=== PATIENT | female | born 1960 | race Caucasian/White ===

== ENCOUNTER 2025-01-13 04:13 | Emergency (ER) | payer OTHER, SELFPAY ==
[2025-01-13] VITALS (14 sets, daily range): BP systolic 146–182; BP diastolic 80–107; PULSE 91–108; RESP 14–19; TEMP 36.9; O2SAT 95–100; BMI 26.5
--- NOTE | 2025-01-13 04:37 | ED_ITS ---
HPI - Abdominal Pain <Uriah Mcclure, DO - Last Filed: 01/13/25 19:39> General Chief Complaint: Abdominal Pain Stated Complaint: Abdominal Pain, Back Pain Time Seen by Provider: 01/13/25 04:27 Source: patient Mode of arrival: Ambulatory History of Present Illness HPI narrative: 64-year-old female history of cholecystectomy presents with abdominal pain radiating to right back neck and shoulder region after eating dinner tonight took Pepcid and Advil with no significant relief of her symptoms. She denies nausea, vomiting, diarrhea, constipation, blood in the urine, or stool, fever or chills or urinary complaints. She did have a bowel movement earlier today that was normal. Other than what is stated 14 point review of system is negative. Related Data Previous Rx's Medication Instructions Recorded meloxicam 7.5 mg tablet 7.5 mg PO BID PRN pain #20 tabs 01/13/25 oxycodone 5 mg tablet 5 mg PO QID PRN pain #10 tabs 01/13/25 Review of Systems <Uriah Mcclure, DO - Last Filed: 01/13/25 19:39> Review of Systems ROS Unobtainable: All systems reviewed & are unremarkable except as noted in HPI and below Patient History <Uriah Mcclure, DO - Last Filed: 01/13/25 19:39> Social History Smoking Status: Never smoker Smoking Status: Never smoker Exam <Uriah Mcclure DO - Last Filed: 01/13/25 19:39> Narrative Exam Narrative: GENERAL: [64] year old patient appears stated age. Well-developed patient, in mild distress. HEAD: Atraumatic. Normocephalic. EYES: Pupils equal round and reactive. Extraocular motions intact. No scleral icterus. No injection or drainage. ENT: Nose without bleeding, purulent drainage. Throat without erythema, tonsillar hypertrophy or exudate. Airway patent. NECK: Trachea midline. Non tender CARDIOVASCULAR: Regular rate and rhythm without murmurs, gallops, or rubs. RESPIRATORY: Clear to auscultation. Breath sounds equal bilaterally. No wheezes, rales, or rhonchi. GASTROINTESTINAL: Abdomen soft, RUQ/Epigastric TTP but no r/r/g/ nondistended. EXTREMITIES: No edema or joint tenderness. BACK: Nontender without deformity or crepitance. No flank tenderness. NEURO: AOx3. SKIN: No rash or erythema of visible areas Initial Vital Signs Initial Vital Signs: Vital Signs Pulse Rate 108 H 01/13/25 04:23 Respiratory Rate 18 01/13/25 04:23 Blood Pressure 176/102 H 01/13/25 04:23 Pulse Oximetry 97 01/13/25 04:23 Oxygen Delivery Method Room Air 01/13/25 04:23 <Freida Balbuena, DO - Last Filed: 01/13/25 17:20> Initial Vital Signs Initial Vital Signs: Vital Signs Pulse Rate 108 H 01/13/25 04:23 Respiratory Rate 18 01/13/25 04:23 Blood Pressure 176/102 H 01/13/25 04:23 Pulse Oximetry 97 01/13/25 04:23 Oxygen Delivery Method Room Air 01/13/25 04:23 Course <Uriah Mcclure, DO - Last Filed: 01/13/25 19:39> Orders Ordered: Discontinued Medications Lactated Ringer's (Lactated Ringers) 500 mls @ 1,000 mls/hr IV BOLUS ONE Stop: 01/13/25 05:53 Last Infusion: 01/13/25 06:19 Dose: Infused Documented By: Admin: 01/13/25 05:35 Dose: 1,000 mls/hr Documented By: AMADOR Ketorolac Tromethamine (Ketorolac 30 Mg/Ml Vial) 30 mg IV NOW ONE Stop: 01/13/25 05:25 Last Admin: 01/13/25 05:35 Dose: 30 mg Documented By: AMADOR Oxycodone/Acetaminophen (Oxycodone/Acetaminophen 5/325 Tablet) 2 tab PO NOW ONE Stop: 01/13/25 09:24 Last Admin: 01/13/25 09:33 Dose: 2 tab Documented By: JACQUELINE Vital Signs Vital signs: Vital Signs - 8 hr 01/13/25 10:02 Temperature 98.4 F Pulse Rate 91 H Respiratory Rate 18 Blood Pressure 148/89 H Pulse Oximetry 97 Oxygen Delivery Method Room Air <Freida Balbuena DO - Last Filed: 01/13/25 17:20> Orders Ordered: Discontinued Medications Lactated Ringer's (Lactated Ringers) 500 mls @ 1,000 mls/hr IV BOLUS ONE Stop: 01/13/25 05:53 Last Infusion: 01/13/25 06:19 Dose: Infused Documented By: Admin: 01/13/25 05:35 Dose: 1,000 mls/hr Documented By: AMADOR Ketorolac Tromethamine (Ketorolac 30 Mg/Ml Vial) 30 mg IV NOW ONE Stop: 01/13/25 05:25 Last Admin: 01/13/25 05:35 Dose: 30 mg Documented By: AMADOR Oxycodone/Acetaminophen (Oxycodone/Acetaminophen 5/325 Tablet) 2 tab PO NOW ONE Stop: 01/13/25 09:24 Last Admin: 01/13/25 09:33 Dose: 2 tab Documented By: JACQUELINE Vital Signs Vital signs: Vital Signs - 8 hr 01/13/25 10:02 Temperature 98.4 F Pulse Rate 91 H Respiratory Rate 18 Blood Pressure 148/89 H Pulse Oximetry 97 Oxygen Delivery Method Room Air MDM - Abdominal Pain <Uriah Mcclure, - Last Filed: 01/13/25 19:39> Lab Data 01/13/25 04:30 01/13/25 04:30 Labs: Lab Results 01/13/25 01/13/25 Range/Units 04:30 04:32 WBC 13.4 H (4.5-11.0) X10^3/uL RBC 4.85 (4.0-5.2) X10^6/uL Hgb 13.9 (12.0-16.0) g/dL Hct 40.9 (36-46) % MCV 84.2 (80-100) fL MCH 28.6 (26-34) PG MCHC 34.0 (30-36) % RDW 13.9 (11.6-14.8) % Plt Count 312 (150-400) X10^3/uL Neut % (Auto) 86.1 H (50-75) % Lymph % (Auto) 7.0 L (25-40) % [place] % (Auto) 5.8 (3-14) % Eos % (Auto) 0.7 L (2-4) % Baso % (Auto) 0.4 (0-2) % Neut # (Auto) 82540 H (2735-1714) /uL Lymph # (Auto) 900 L (2317-5658) /uL [place] # (Auto) 800 (0-900) /uL Eos # (Auto) 100 (0-450) /uL Baso # (Auto) 100 (0-100) /uL Sodium 135 L (137-145) mmol/L Potassium 4.1 (3.4-5.1) mmol/L Chloride 102 (98-107) mmol/L Carbon Dioxide 20 L (22-32) mmol/L BUN 19 H (7-17) mg/dL Creatinine 0.60 (0.52-1.04) mg/dL Estimated GFR > 60 (>60) mL/min BUN/Creatinine Ratio 31.7 H (6-22) Glucose 179 H (70-99) mg/dL Lactate 1.7 (0.7-2.1) mmol/L Calcium 9.4 (8.4-10.2) mg/dL Total Bilirubin 0.6 (0.2-1.3) mg/dL AST 39 H (14-36) IU/L ALT 31 (<35) IU/L Alkaline Phosphatase 125 (38-126) U/L Total Protein 7.8 (6.3-8.2) g/dL Albumin 4.7 (3.5-5.0) g/dL Globulin 3.1 (1.7-4.1) g/dL Albumin/Globulin Ratio 1.5 (1.0-2.8) Lipase 86 (23-300) U/L Urine RBC 1-5/hpf (0-5/HPF) Urine WBC 0-1/hpf (0-5/HPF) Ur Squamous Epith Cells 1-5 /hpf (0-5/HPF) Urine Bacteria None seen (None) Ur Culture Indicated? Cult not indicated Vol Urine Centrifuged 10ml (spun) Point of care testing: Urine Dip Bedside Urine Glucose 500 mg/dl Bedside Urine Bilirubin - Negative Bedside Urine Ketone - Negative Urine Specific [place] 1.015 Bedside Urine Occult Blood ++ Bedside Urine pH 6.5 Bedside Urine Protein +/- 15 Bedside Urine Urobilinogen - Negative Bedside Urine Nitrite - Negative Bedside Urine Leukocytes - Negative Esterase MDM Narrative Medical decision making narrative: All lab work vital signs nurse triage note medication list imaging studies and all previous visits reviewed. Patient given lactated ringer 1 L bolus and Toradol 30 mg IV x1 here. Case discussed with our surgeon on-call Dr. Amaya who recommended patient be transferred to a higher level of care with subspecialty available including interventional radiology to potentially put a drain in place given the size of liver cyst. Patient signed out to at shift change pending final disposition. 01/13/25 Dr. Balbuena 0736: Patient signed out to myself by Dr. Mcclure. Patient presents with right upper quadrant and epigastric pain after eating has a white count of 13, normal hemoglobin platelets, chemistry shows CO2 of 20 otherwise normal electrolytes and creatinine glucose of 179 AST is 39, bilirubin ALT and lipase are all normal as well as alk-phos. Point of care urine shows blood negative nitrates and leuks. 1-5 RBCs 1 WBCs 1-5 squamous no bacteria. Patient had CT imaging shows cholecystectomy, large simple right hepatic lobe cyst measuring up to 12.8 cm compressing neighboring structures tiny additional up to 18 mm scattered hepatic cysts. No evidence of intra cystic hemorrhage. Mild haziness of the central/left aspects of the small bowel mesenteric fat with the associated subcentimeter mesenteric nodes due to nonspecific age-indeterminate more likely chronic than acute has not otitis with a small hiatal hernia. Dr. Mcclure spoke with promotions director general surgery, Dr. Amaya, who recommends transfer for IR drain. Calls her optimal to facilities. Patient is seen and evaluated by myself on it. She states takes oral antihistamine no other daily medications. He was had prior cholecystectomy but no other surgeries. No known drug allergies. States pain is much improved after Toradol. On exam she was mildly tender right upper quadrant. Otherwise normal heart and lungs with normal bowel sounds. No rigidity, rebound or guarding. Patient is aware of current plan. Spoke with [facility] physician. They are agreeable for patient to be transferred to any facility as needed. Calls out to multiple facilities. [facility], Dr. Romero, IR reviewed patient's information and imaging and feels that is non emergent if they transferred which they can would probably not be treated about Wednesday at the earliest. They are willing to accept patient for transfer page out hospitalist but wanted to offer outpatient intervention as well. Spoke with coordinator who will look at the referral process as we are not set up for formal referral. Coordinator did call back, Dr. Romero he was placing in the formal order now. She can call the scheduling numbers below to be scheduled. Patient is to call Wednesday morning. Spoke with the patient she would much rather have this done on emergently as an outpatient rather than transfer. She notes her pain is starting to come back. We will give a dose of oral pain medication. Discussed risks/benefits with patient and family. She feels comfortable with this plan. She was tolerating orals here in the department. <Freida Balbuena, DO - Last Filed: 01/13/25 17:20> Lab Data Labs: Lab Results 01/13/25 01/13/25 Range/Units 04:30 04:32 WBC 13.4 H (4.5-11.0) X10^3/uL RBC 4.85 (4.0-5.2) X10^6/uL Hgb 13.9 (12.0-16.0) g/dL Hct 40.9 (36-46) % MCV 84.2 (80-100) fL MCH 28.6 (26-34) PG MCHC 34.0 (30-36) % RDW 13.9 (11.6-14.8) % Plt Count 312 (150-400) X10^3/uL Neut % (Auto) 86.1 H (50-75) % Lymph % (Auto) 7.0 L (25-40) % [place] % (Auto) 5.8 (3-14) % Eos % (Auto) 0.7 L (2-4) % Baso % (Auto) 0.4 (0-2) % Neut # (Auto) 23670 H (5459-2900) /uL Lymph # (Auto) 900 L (6611-2673) /uL [place] # (Auto) 800 (0-900) /uL Eos # (Auto) 100 (0-450) /uL Baso # (Auto) 100 (0-100) /uL Sodium 135 L (137-145) mmol/L Potassium 4.1 (3.4-5.1) mmol/L Chloride 102 (98-107) mmol/L Carbon Dioxide 20 L (22-32) mmol/L BUN 19 H (7-17) mg/dL Creatinine 0.60 (0.52-1.04) mg/dL Estimated GFR > 60 (>60) mL/min BUN/Creatinine Ratio 31.7 H (6-22) Glucose 179 H (70-99) mg/dL Lactate 1.7 (0.7-2.1) mmol/L Calcium 9.4 (8.4-10.2) mg/dL Total Bilirubin 0.6 (0.2-1.3) mg/dL AST 39 H (14-36) IU/L ALT 31 (<35) IU/L Alkaline Phosphatase 125 (38-126) U/L Total Protein 7.8 (6.3-8.2) g/dL Albumin 4.7 (3.5-5.0) g/dL Globulin 3.1 (1.7-4.1) g/dL Albumin/Globulin Ratio 1.5 (1.0-2.8) Lipase 86 (23-300) U/L Urine RBC 1-5/hpf (0-5/HPF) Urine WBC 0-1/hpf (0-5/HPF) Ur Squamous Epith Cells 1-5 /hpf (0-5/HPF) Urine Bacteria None seen (None) Ur Culture Indicated? Cult not indicated Vol Urine Centrifuged 10ml (spun) Point of care testing: Urine Dip Bedside Urine Glucose 500 mg/dl Bedside Urine Bilirubin - Negative Bedside Urine Ketone - Negative Urine Specific [place] 1.015 Bedside Urine Occult Blood ++ Bedside Urine pH 6.5 Bedside Urine Protein +/- 15 Bedside Urine Urobilinogen - Negative Bedside Urine Nitrite - Negative Bedside Urine Leukocytes - Negative Esterase MDM Narrative Medical decision making narrative: All lab work vital signs nurse triage note medication list imaging studies and all previous visits reviewed. Patient given lactated ringer 1 L bolus and Toradol 30 mg IV x1 here. Case discussed with our surgeon on-call Dr. Amaya who recommended patient be transferred to a higher level of care with subspecialty available including interventional radiology to potentially put a drain in place given the size of liver cyst. 01/13/25 Dr. Balbuena 0736: Patient signed out to myself by Dr. Mcclure. Patient presents with right upper quadrant and epigastric pain after eating has a white count of 13, normal hemoglobin platelets, chemistry shows CO2 of 20 otherwise normal electrolytes and creatinine glucose of 179 AST is 39, bilirubin ALT and lipase are all normal as well as alk-phos. Point of care urine shows blood negative nitrates and leuks. 1-5 RBCs 1 WBCs 1-5 squamous no bacteria. Patient had CT imaging shows cholecystectomy, large simple right hepatic lobe cyst measuring up to 12.8 cm compressing neighboring structures tiny additional up to 18 mm scattered hepatic cysts. No evidence of intra cystic hemorrhage. Mild haziness of the central/left aspects of the small bowel mesenteric fat with the associated subcentimeter mesenteric nodes due to nonspecific age-indeterminate more likely chronic than acute has not otitis with a small hiatal hernia. Dr. Mcclure spoke with promotions director general surgery, Dr. Amaya, who recommends transfer for IR drain. Calls her optimal to facilities. Patient is seen and evaluated by myself on it. She states takes oral antihistamine no other daily medications. He was had prior cholecystectomy but no other surgeries. No known drug allergies. States pain is much improved after Toradol. On exam she was mildly tender right upper quadrant. Otherwise normal heart and lungs with normal bowel sounds. No rigidity, rebound or guarding. Patient is aware of current plan. Spoke with [facility] physician. They are agreeable for patient to be transferred to any facility as needed. Calls out to multiple facilities. [facility], Dr. Romero, IR reviewed patient's information and imaging and feels that is non emergent if they transferred which they can would probably not be treated about Wednesday at the earliest. They are willing to accept patient for transfer page out hospitalist but wanted to offer outpatient intervention as well. Spoke with coordinator who will look at the referral process as we are not set up for formal referral. Coordinator did call back, Dr. Romero he was placing in the formal order now. She can call the scheduling numbers below to be scheduled. Patient is to call Wednesday. Spoke with the patient she would much rather have this done on emergently as an outpatient rather than transfer. She notes her pain is starting to come back. We will give a dose of oral pain medication. Discussed risks/benefits with patient and family. She feels comfortable with this plan. She was tolerating orals here in the department. Discharge Plan Departure Patient Disposition: Home Clinical Impression: Hepatic cyst, Abdominal pain Activity Restrictions/Additional Instructions: The interventionalist Dr. Romero at [facility] reviewed your imaging today they did offer transfer but also offered outpatient follow up for intervention for your hepatic cyst. As you have elected to follow up outpatient, you may need to reach out to your primary care for formal referral. I did a share with the transfer center that we are not set up for formal referral through the emergency department. Call Wednesday to schedule with Dr. Romero. He is placing an order to have your drain placed so you should not need a formal referral. Call the the number included below. Appointment Line for [facility] is [phone] An alternative number is [phone] if that is not working. You can take acetaminophen up to a 1000 mg every 6 hours and/or meloxicam 1 tablet every 12 hours as needed for pain. This is an NSAID do not take ibuprofen, naproxen or Aleve or similar medications with it. If inadequate for pain you can take oxycodone 1-2 tablets every 6 hours as needed. This medication can make you sleepy do not drive, perform hazardous activities or make any major decisions while taking it. This medication will make you constipated please take a stool softener once to twice daily until stools are soft and regular. Prescription sent to [facility] in [place]. Please return for fevers, rapidly worsening pain, vomiting, lightheadedness or passing out or other new or concerning changes. Prescriptions: New meloxicam 7.5 mg tablet 7.5 mg PO BID PRN (Reason: pain) Qty: 20 0RF oxycodone 5 mg tablet 5 mg PO QID PRN (Reason: pain) Qty: 10 0RF Referrals: Ester Jensen MD [Primary Care Provider] - Stand Alone Forms: Patient Portal/API/Survey
[2025-01-13 04:43] LABS: Urine Volume 10mL (spun)
[2025-01-13 04:47] LABS: Bacteria Urine None Seen; Culture Indicated Urine Cult Not Indicated; RBC Urine 1-5/HPF (0-5/HPF); Squamous Epithelial Cell Urine 1-5 /HPF (0-5/HPF); WBC Urine 0-1/HPF (0-5/HPF)
[2025-01-13 05:07] LABS: Add Manual Diff / Slide Review NO; Basophils Absolute Auto 100 /uL (0-100); Basophils Percent Auto 0.4 % (0-2); Eosinophils Absolute Auto 100 /uL (0-450); Eosinophils Percent Auto 0.7 % (2-4); Hematocrit 40.9 % (36-46); Hemoglobin 13.9 g/dL (12.0-16.0); Lymphocytes Absolute Auto 900 /uL (1100-4500); Mean Corpuscular Hemoglobin 28.6 PG (26-34); Mean Corpuscular Volume 84.2 fL (80-100); Monocytes Absolute Auto 800 /uL (0-900); Monocytes Percent Auto 5.8 % (3-14); Neutrophils Absolute Auto 11500 /uL (1500-7000); Neutrophils Percent Auto 86.1 % (50-75); Platelet Count 312 X10^3/uL (150-400); Red Blood Cell Count 4.85 X10^6/uL (4.0-5.2); Red Cell Distribution Width 13.9 % (11.6-14.8); White Blood Cell Count 13.4 X10^3/uL (4.5-11.0)
[2025-01-13 05:13] LABS: Alanine Aminotransferase 31 IU/L (<35); Albumin 4.7 g/dL (3.5-5.0); Albumin Globulin Ratio 1.5 (1.0-2.8); Alkaline Phosphatase 125 U/L (38-126); Aspartate Aminotransferase 39 IU/L (14-36); BUN Creatinine Ratio 31.7 (6-22); Bilirubin Total 0.6 mg/dL (0.2-1.3); Blood Urea Nitrogen 19 mg/dL (7-17); Calcium 9.4 mg/dL (8.4-10.2); Carbon Dioxide 20 mmol/L (22-32); Chloride 102 mmol/L (98-107); Estimated Glomerular Filt Rate > 60 mL/min (>60); Globulin 3.1 g/dL (1.7-4.1); Glucose 179 mg/dL (70-99); HEMOLYSIS 42 (0-50); Lactate (Lactic Acid) 1.7 mmol/L (0.7-2.1); Lipase 86 U/L (23-300); Potassium 4.1 mmol/L (3.4-5.1); Sodium 135 mmol/L (137-145); Total Protein 7.8 g/dL (6.3-8.2)
--- NOTE | 2025-01-13 05:23 | DI.CT.S_ITS ---
PROCEDURE: CT ABDOMEN PELVIS W CON INDICATIONS: abd pain TECHNIQUE: After the administration of intravenous contrast, axial sections acquired from the lung bases to the pubic symphysis. Coronal and sagittal reformats were performed. For radiation dose reduction, the following was used: automated exposure control, adjustment of mA and/or kV according to patient size. COMPARISON: None. FINDINGS: Image quality: Diagnostic. Lower Chest: Small hiatal hernia. Moderate interstitial prominence in the basilar regions. ABDOMEN: Liver: Large right hepatic cyst measuring 12.5 x 13.1 cm. A few additional hepatic cyst within the right lobe. Gallbladder: The gallbladder surgically absent. Biliary ducts: No biliary dilation. Pancreas: No ductal dilation. Spleen: Size is within normal limits. Adrenal Glands: No adrenal nodules. Kidneys and Ureters: No hydronephrosis. No solid mass. No complex renal cystic lesion which requires follow up. Stomach and Bowel: Normal colonic caliber, without significant wall thickening. Normal appendix Peritoneum: No abnormal intraperitoneal fluid. No free air. Ventral Wall: No significant ventral hernia. Abdominal Nodes: Mild prominent mesenteric lymph nodes without lang lymphadenopathy. Subtle skull haziness within the mesenteric fat along the vasculature Vessels: Aorta and inferior vena cava are normal in size. PELVIS: Pelvic Organs: Unremarkable. Bladder: No bladder wall thickening, accounting for underdistention. Pelvic Nodes: No enlarged lymph nodes. Miscellaneous: Small fat containing umbilical hernia. Bones: No aggressive osseous abnormality. IMPRESSION: 1. No acute findings. 2. Large right hepatic cyst measuring up to 13 cm. 3. Nonspecific haziness of the central mesentery may reflect mesenteritis. 4. Hiatal hernia. 5. Fat containing inguinal hernia. Interpretation is congruent with overnight read. Dictated by: Luis Reilly M.D. on 01/13/2025 at 8:27 Approved by: Luis Reilly M.D. on 01/13/2025 at 8:33
[2025-01-13] MEDS: KETOROLAC 30 MG/ML VIAL IV (05:35)
[2025-01-13] MEDS: LACTATED RINGERS 500 ML 1000 ML IV (05:35)
--- NOTE | 2025-01-13 07:00 | PC.NURSE ---
Ambulatory to restroom without difficulty or assistance
--- NOTE | 2025-01-13 08:32 | PC.NURSE ---
Addendum entered by Donna White CNA 01/13/25 09:07: Stacey Chicas/MUNIR Gallo transfer request started @0834. Face sheet and Images pushed. Original Note: with [facility] authorized for patient transfer to any available facility at 0830. Transfer request started with [facility]/Sandra at 0746 and continued after [facility] authorization at 0830. Face sheet and images pushed.
[2025-01-13] MEDS: OXYCODONE/ACETAMINOPHEN 5/325 TABLET 2 TAB PO (09:33)
== END 2025-01-13 10:03 | disposition home or self-care (01) ==
PROVIDERS: Family Medicine; Emergency Provider Emergency Medicine; PCP Student in an Organized Health Care Education/Training Program
DX: K76.89 Other specified diseases of liver (principal); R10.9 Unspecified abdominal pain; M54.2 Cervicalgia
CPT/HCPCS: 36415; 74177; 80053; 81003; 81015; 83605; 83690; 85025; 96361; 96374; 99284; J1885; Q9967

== ENCOUNTER 2025-02-24 03:42 | Emergency (ER) | payer OTHER, SELFPAY ==
[2025-02-24] VITALS (10 sets, daily range): BP systolic 115–183; BP diastolic 72–104; PULSE 75–99; RESP 16; TEMP 36.4; O2SAT 94–98; BMI 26.2
--- NOTE | 2025-02-24 03:46 | ED_ITS ---
HPI - Abdominal Pain General Chief Complaint: Abdominal Pain Stated Complaint: Abdominal Pain Time Seen by Provider: 02/24/25 03:46 History of Present Illness HPI narrative: 64-year-old female with a history of cholecystectomy comes into the ED from home for evaluation of abdominal pain, she states that she has a history of liver cyst that required drainage most recent was at [facility] after it in January. She states that the pain started spontaneously at around 2:30 a.m. today, describes it as diffuse in nature nothing making it better or worse. She denies any other symptoms such as headache visual disturbances shortness of breath fever chills nausea vomiting or any other GI/ symptoms time. Related Data Previous Rx's ?Medication ?Instructions ?Recorded meloxicam 7.5 mg tablet 7.5 mg PO .B.i.d. PRN Pain # 20 tabs 02/24/25 ondansetron 4 mg disintegrating 4 mg PO Q8H 5 days #15 tabs 02/24/25 tablet oxycodone 5 mg tablet 5 mg PO QID PRN pain #10 tab s 02/24/25 Allergies Allergy/AdvReac Type Severity Reaction Status Date / Time No Known Drug Allergies Allergy Verified 02/01/25 09:25 Review of Systems Review of Systems Narrative: General: Denies fever, chills, weight loss HEENT: Denies headache, eye drainage, eye irritation, head trauma, sore throat, voice change Cardiovascular: Denies any chest pain, palpitations, tachycardia Respiratory: Denies any shortness of breath, cough, wheeze, stridor GI/: Positive abdominal pain, denies nausea, vomiting, diarrhea, bright red blood per rectum, melanotic stools, urinary frequency, urinary retention, dysuria, hematuria MSK: Denies any joint pain, muscle pains, swelling Skin: Denies any rashes, lesions, discoloration Neuro: Denies any headache, lightheadedness, dizziness, fainting, weakness Psych: Denies SI/HI Exam Narrative Exam Narrative: General: Cooperative, well-developed, not in acute distress HEENT: Normocephalic, atraumatic, PERRLA, normal sclera, eyelids normal Neck: Active full range of motion, atraumatic Chest: Normal to inspection, negative crepitus, no overlying erythema ecchymosis Respiratory: Normal respiratory effort, not in acute respiratory distress, clear to auscultation bilaterally negative cough, wheeze, tachypnea, rhonchi, rales Cardiology: Regular rate rhythm negative gallop, murmur, rubs GI/: Moderate tenderness to palpation diffusely to the abdomen, soft, non rigid, normal to inspection, exam deferred MSK: Full active range of motion in all 4 extremities, atraumatic, no tenderness to palpation of any bony prominences Skin: No rashes or lesions noted Neuro: Alert awake oriented x3, moves all 4 extremities spontaneously, cranial nerves intact, able to answer all questions appropriately follows commands appropriately Psych: Cooperative, negative suicidal or homicidal ideations Initial Vital Signs Initial Vital Signs: Vital Signs Temperature 97.5 F L 02/24/25 03:51 Pulse Rate 75 02/24/25 03:51 Respiratory Rate 16 02/24/25 03:51 Blood Pressure 136/80 02/24/25 03:51 Pulse Oximetry 97 02/24/25 03:51 Oxygen Delivery Method Room Air 02/24/25 03:51 Course Orders Ordered: ED Orders 02/24/25 03:51 CT abdomen pelvis w con Stat 02/24/25 03:55 Complete Blood Count AUTO DIFF Stat Comprehensive Metabolic Panel Stat Lactate (Lactic Acid) Stat Lipase Stat MAG [Magnesium] Stat 02/24/25 05:03 Urine Microscopic Stat Discontinued Medications Hydromorphone HCl (Hydromorphone 1 Mg Inj) 0.5 mg IV NOW ONE Stop: 02/24/25 04:28 Last Admin: 02/24/25 04:37 Dose: 0.5 mg Morphine Sulfate (Morphine 4 Mg/Ml Inj) 4 mg IV NOW ONE Stop: 02/24/25 03:52 Last Admin: 02/24/25 04:04 Dose: 4 mg Vital Signs Vital signs: Vital Signs - 8 hr 02/24/25 03:51 02/24/25 04:08 02/24/25 04:09 Temperature 97.5 F L Pulse Rate 75 92 H Respiratory Rate 16 Blood Pressure 136/80 151/88 H Pulse Oximetry 97 97 Oxygen Delivery Method Room Air 02/24/25 04:09 02/24/25 04:38 02/24/25 04:39 Temperature Pulse Rate 93 H 99 H 98 H Respiratory Rate Blood Pressure Pulse Oximetry 96 98 98 Oxygen Delivery Method 02/24/25 04:39 02/24/25 05:00 02/24/25 05:00 Temperature Pulse Rate 94 H Respiratory Rate Blood Pressure 183/104 H 153/88 H Pulse Oximetry 96 Oxygen Delivery Method 02/24/25 05:30 02/24/25 05:30 02/24/25 06:00 Temperature Pulse Rate 86 Respiratory Rate Blood Pressure 115/72 131/80 Pulse Oximetry 94 Oxygen Delivery Method 02/24/25 06:00 Temperature Pulse Rate 90 Respiratory Rate Blood Pressure Pulse Oximetry 94 Oxygen Delivery Method MDM - Abdominal Pain Differential Diagnosis Differential diagnosis: Likely abdominal pain, acute appendicitis, constipation, diverticulitis, pancreatitis, small bowel obstruction and other (Electrolyte abnormality) Lab Data 02/24/25 03:55 02/24/25 03:55 Labs: Lab Results 02/24/25 02/24/25 Range/Units 03:55 04:55 WBC 8.6 (4.5-11.0) X10^3/uL RBC 4.66 (4.0-5.2) X10^6/uL Hgb 13.4 (12.0-16.0) g/dL Hct 39.6 (36-46) % MCV 84.9 (80-100) fL MCH 28.7 (26-34) PG MCHC 33.8 (30-36) % RDW 13.7 (11.6-14.8) % Plt Count 378 (150-400) X10^3/uL Neut % (Auto) 69.0 (50-75) % Lymph % (Auto) 16.8 L (25-40) % [place] % (Auto) 9.3 (3-14) % Eos % (Auto) 4.0 (2-4) % Baso % (Auto) 0.9 (0-2) % Neut # (Auto) 6000 (2536-1100) /uL Lymph # (Auto) 1400 (6892-0685) /uL [place] # (Auto) 800 (0-900) /uL Eos # (Auto) 300 (0-450) /uL Baso # (Auto) 100 (0-100) /uL Sodium 138 (137-145) mmol/L Potassium 4.0 (3.4-5.1) mmol/L Chloride 102 (98-107) mmol/L Carbon Dioxide 28 (22-32) mmol/L BUN 17 (7-17) mg/dL Creatinine 0.73 (0.52-1.04) mg/dL Estimated GFR > 60 (>60) mL/min BUN/Creatinine Ratio 23.3 H (6-22) Glucose 143 H (70-99) mg/dL Lactate 1.3 (0.7-2.1) mmol/L Calcium 9.2 (8.4-10.2) mg/dL Magnesium 2.2 (1.6-2.3) mg/dL Total Bilirubin 0.5 (0.2-1.3) mg/dL AST 32 (14-36) IU/L ALT 33 (<35) IU/L Alkaline Phosphatase 129 H (38-126) U/L Total Protein 7.7 (6.3-8.2) g/dL Albumin 4.3 (3.5-5.0) g/dL Globulin 3.4 (1.7-4.1) g/dL Albumin/Globulin Ratio 1.3 (1.0-2.8) Lipase 47 (23-300) U/L Urine RBC 0-1/hpf (0-5/HPF) Urine WBC None seen (0-5/HPF) Ur Squamous Epith Cells 0-1 /hpf (0-5/HPF) Amorphous Sediment 1+ Urine Bacteria None seen (None) Ur Culture Indicated? Cult not indicated Vol Urine Centrifuged 10ml (spun) Point of care testing: Urine Dip Bedside Urine Glucose Negative Bedside Urine Bilirubin - Negative Bedside Urine Ketone - Negative Urine Specific [place] 1.010 Bedside Urine Occult Blood +/- Bedside Urine pH 8.0 Bedside Urine Protein - Negative Bedside Urine Urobilinogen - Negative Bedside Urine Nitrite - Negative Bedside Urine Leukocytes - Negative Esterase Imaging Data CT scan - abdomen/pelvis: Radiologist's Impression: Preliminary read showing 1. Change in the size and shape of right lobe liver cysts may be due to recent drainage procedure. A small amount of debris this is apparent within this, no significant acute hemorrhages suspected. Two new finding of moderate volume free fluid in the abdomen and pelvis, also may be related to the reported recent drainage procedure MDM Narrative Medical decision making narrative: 64-year-old female with a past medical history of remote cholecystectomy and liver cyst requiring drainage in January of 2025 presents for abdominal pain, states it is similar to when she was 1st seen here in January that she states required outpatient drainage of her liver cyst. She states that the pain is exactly the same as before. Patient denies any other symptoms at this time. Review of records do show patient was seen here on 01/13/[address] scan of the abdomen did show a large simple right hepatic lobe cyst measuring 12.8 cm compressing neighboring structures requiring drainage. It was noted that patient was discharged with outpatient follow up for drainage. Outside ultrasound IR did show patient had a proximally 1200 cc of fluid removed from her hepatic cyst. This was performed on 01/16/[address] Jillian Chawla. Additional review of records show that patient had a CT abdomen and pelvis with IV contrast performed on 02/16/2025 from outside hospital showing large hepatic cyst measuring 13 cm. Patient lab work today without any leukocytosis, Chem panel unremarkable, patient with AST 32, ALT 33, alk-phos 129, urinalysis not consistent with acute urinary tract infection, lactate normal. Patient's imaging today showing increased size and shape of the right lobe liver cyst due to recent drainage small amount of debris he has but no acute hemorrhage, moderate volume of free fluid in the abdomen and pelvis 0555: Patient was re-evaluated, stating that her abdominal pain has significantly improved he is now stating 10/23, I did inform her of her CT scan results which did show reaccumulation of fluid in her liver as well as new fluid within her abdomen, repeat abdominal exam is non peritoneal nature, mild tenderness to palpation diffusely, I informed patient that we are waiting call back from IR for additional recommendations, she states that she would feel comfortable either being transferred or being discharged with urgent follow up like before. 0630: Had a discussion with interventional radiologist Jillian Payan at [facility], he states that CT findings are consistent with history of drainage, he states that this is not an emergent or urgent abnormality, patient would be safe for discharge home with pain control and outpatient follow up. This was informed to the patient who understands and agrees to being discharged home with outpatient follow up. I informed patient that she needs to call the number in her discharge paperwork to set up the appointment for drainage, and to return to the emergency department immediately for any worsening symptoms. She understands and agrees with this plan. Discharge Plan Departure Patient Disposition: Home Clinical Impression: Hepatic cyst, Abdominal ascites Activity Restrictions/Additional Instructions: Please call the following numbers below to schedule the your appointment for drainage Appointment Line for Linette Nicolas is [phone] An alternative number is [phone] if that is not working. Please return to the emergency department for any worsening symptoms Please read the discharge instructions sheet carefully and bring all papers to all doctor follow-up visits, as it may contain information that your doctor may want to see. Disease processes change and evolve, if your symptoms worsen or if you develop any new symptoms that are concerning to you please return for evaluation. Your evaluation today does not show any evidence of any life- threatening/serious illnesses requiring admission to the hospital or surgery. Please follow-up with your doctor for re-evaluation in approximately 1 day. Seek immediate medical attention for any worrisome symptoms. *If you do not have a primary care provider please contact the [facility] Resource line at [phone]. They will ask some questions about your medical history and help get you set up with a doctor in the community. Prescriptions: New oxycodone 5 mg tablet 5 mg PO QID PRN (Reason: pain) Qty: 10 0RF meloxicam 7.5 mg tablet 7.5 mg PO .B.i.d. PRN (Reason: Pain) Qty: 20 0RF ondansetron 4 mg tablet,disintegrating 4 mg PO Q8H 5 Days Qty: 15 0RF Referrals: Ester Jensen MD [Primary Care Provider, Family Practice] Stand Alone Forms: Patient Portal/API
--- NOTE | 2025-02-24 03:51 | DI.CT.S_ITS ---
PROCEDURE: CT ABDOMEN PELVIS W CON INDICATIONS: diffuse abd pain TECHNIQUE: After the administration of intravenous contrast, axial sections acquired from the lung bases to the pubic symphysis. Coronal and sagittal reformats were performed. For radiation dose reduction, the following was used: automated exposure control, adjustment of mA and/or kV according to patient size. COMPARISON: [facility], CT, CT ABDOMEN PELVIS W CON, 01/13/2025, 5:30. FINDINGS: Image quality: Diagnostic. Lower Chest: Mild bibasilar dependent atelectasis. Heart size is normal, no pericardial effusion. ABDOMEN: Liver: No solid mass. Patient's known large lobulated cystic structure in right hepatic lobe is again seen with more lobulated contour on the current study and internal hyperdense material.. Additional smaller cysts are also seen scattered in liver parenchyma. Gallbladder: Gallbladder is surgically absent. Biliary ducts: No biliary dilation. Pancreas: No ductal dilation. Spleen: Size is within normal limits. Adrenal Glands: No adrenal nodules. Kidneys and Ureters: No hydronephrosis. No solid mass. No complex renal cystic lesion which requires follow up. Stomach and Bowel: There is no bowel obstruction. No abnormal bowel wall thickening or mesenteric fat stranding. No abscess collection. Peritoneum: Small amount of free fluid is seen adjacent to liver and spleen. Small to moderate amount of free fluid is seen in lower pelvis. No peritoneal free air. Ventral Wall: No significant ventral hernia. Abdominal Nodes: No retroperitoneal or mesenteric adenopathy by size criteria. Vessels: Aorta and inferior vena cava are normal in size. PELVIS: Pelvic Organs: Unremarkable. Bladder: No bladder wall thickening, accounting for underdistention. Pelvic Nodes: No enlarged lymph nodes. Miscellaneous: No inguinal hernias are seen. Bones: No aggressive osseous abnormality. IMPRESSION: 1. Interval change in size and shape of the right hepatic cyst with internal hyperdensity likely related to recent drainage procedure and possible internal blood clots. No evidence of active bleeding. 2. Ascites fluid in abdomen and pelvis. No gross free air. 3. No bowel obstruction or abnormal bowel wall thickening. No abscess collection. No discrepancies from preliminary reading. Dictated by: Lawson Person M.D. on 02/24/2025 at 8:23 Approved by: Lawson Person M.D. on 02/24/2025 at 8:30
[2025-02-24] MEDS: MORPHINE 4 MG/ML INJ IV (04:04)
[2025-02-24 04:09] LABS: Add Manual Diff / Slide Review NO; Basophils Absolute Auto 100 /uL (0-100); Basophils Percent Auto 0.9 % (0-2); Eosinophils Absolute Auto 300 /uL (0-450); Hematocrit 39.6 % (36-46); Hemoglobin 13.4 g/dL (12.0-16.0); Lymphocytes Absolute Auto 1400 /uL (1100-4500); Lymphocytes Percent Auto 16.8 % (25-40); Mean Corpuscular HGB Conc 33.8 % (30-36); Mean Corpuscular Hemoglobin 28.7 PG (26-34); Mean Corpuscular Volume 84.9 fL (80-100); Monocytes Absolute Auto 800 /uL (0-900); Monocytes Percent Auto 9.3 % (3-14); Neutrophils Absolute Auto 6000 /uL (1500-7000); Platelet Count 378 X10^3/uL (150-400); Red Blood Cell Count 4.66 X10^6/uL (4.0-5.2); Red Cell Distribution Width 13.7 % (11.6-14.8); White Blood Cell Count 8.6 X10^3/uL (4.5-11.0)
[2025-02-24 04:18] LABS: Alanine Aminotransferase 33 IU/L (<35); Albumin 4.3 g/dL (3.5-5.0); Albumin Globulin Ratio 1.3 (1.0-2.8); Alkaline Phosphatase 129 U/L (38-126); Aspartate Aminotransferase 32 IU/L (14-36); BUN Creatinine Ratio 23.3 (6-22); Bilirubin Total 0.5 mg/dL (0.2-1.3); Blood Urea Nitrogen 17 mg/dL (7-17); Calcium 9.2 mg/dL (8.4-10.2); Carbon Dioxide 28 mmol/L (22-32); Chloride 102 mmol/L (98-107); Estimated Glomerular Filt Rate > 60 mL/min (>60); Globulin 3.4 g/dL (1.7-4.1); Glucose 143 mg/dL (70-99); HEMOLYSIS < 15 (0-50); Lactate (Lactic Acid) 1.3 mmol/L (0.7-2.1); Lipase 47 U/L (23-300); Sodium 138 mmol/L (137-145); Total Protein 7.7 g/dL (6.3-8.2)
[2025-02-24 04:19] LABS: Magnesium 2.2 mg/dL (1.6-2.3)
[2025-02-24] MEDS: HYDROMORPHONE 1 MG INJ 0.5 MG IV (04:37)
[2025-02-24 05:27] LABS: Amorphous Sediment Urine 1+; Bacteria Urine None Seen; Culture Indicated Urine Cult Not Indicated; RBC Urine 0-1/HPF (0-5/HPF); Squamous Epithelial Cell Urine 0-1 /HPF (0-5/HPF); Urine Volume 10mL (spun); WBC Urine None Seen (0-5/HPF)
[2025-02-24] MEDS: HYDROMORPHONE 0.5 MG INJ IV (06:35)
== END 2025-02-24 06:51 | disposition home or self-care (01) ==
PROVIDERS: Emergency Provider Student in an Organized Health Care Education/Training Program; PCP Student in an Organized Health Care Education/Training Program
DX: K76.89 Other specified diseases of liver (principal); R18.8 Other ascites
CPT/HCPCS: 36415; 74177; 80053; 81003; 81015; 83605; 83690; 83735; 85025; 96374; 96375; 96376; 99284; J1171; J2270; Q9967